=== PATIENT | female | born 1975 | race Two or more races ===

== ENCOUNTER → 2018-09-25 | Outpatient (CLI) | payer OTHER | END | disposition home or self-care (01) | LOC: RAD 501 10:59 | DX: J45.990 Exercise induced bronchospasm (principal); J45.909 Unspecified asthma, uncomplicated; J32.8 Other chronic sinusitis ==

== ENCOUNTER 2023-07-18 09:36 | Emergency (ER) | payer OTHER ==
[~2023-07-18] VITALS: Ht 165.1 cm; Wt 69.9 kg
[2023-07-18] MEDS ORDERED: ORPHENADRINE CITRATE 30 MG/ML AMPUL IM ONE (11:45)
[2023-07-18] MEDS ORDERED: KETOROLAC TROMETHAMINE 30 MG VIAL IM ONE (11:45)
[2023-07-18] MEDS ORDERED: CELEBREX200MG PO (13:01)
== END 2023-07-18 13:14 | disposition home or self-care (01) ==
LOC: ER 09:36
DX: M25.512 Pain in left shoulder (principal); M25.511 Pain in right shoulder; Z88.8 Allergy status to other drugs, medicaments and biological substances

== ENCOUNTER 2023-07-18 12:16 | Outpatient (CLI) | payer OTHER ==
[2023-07-18] MEDS ORDERED: CELEBREX200MG PO (13:01)
== END 2023-07-18 12:17 | disposition home or self-care (01) ==
LOC: SONOGRAMA 12:16
DX: S49.92XA Unspecified injury of left shoulder and upper arm, initial encounter (principal); M75.82 Other shoulder lesions, left shoulder